=== PATIENT | female | born 1945 | race Caucasian/White ===

== ENCOUNTER 2017-10-30 15:59 | Emergency (ER) | payer MEDICARE, OTHER ==
[~2017-10-30] VITALS: Ht 170.2 cm; Wt 81.2 kg
[2017-10-30 16:03] VITALS: BP 132/60; PULSE 77; RESP 15; TEMP 98.6; O2SAT 97
--- NOTE | 2017-10-30 16:23 | PD ---
HPI Chief Complaint: Fall Time Seen by Provider: 16:12 Travel History International Travel<30 days: No Contact w/Intl Traveler<30days: No Traveled to known affect area: No History of Present Illness HPI 72-year-old female that presents to the ED for evaluation of fall. Patient had a mechanical fall today on a curb. She states that she try to stop her fall with her hands and she landed mostly on her right wrist. She has a chin abrasion as well as a bruise and some swelling to the wrist on the right hand. Patient has difficulty opening her hands secondary to pain. She is able to move it however. She has a superficial cut to the palm as well as to the right fifth digit. States been up-to-date with tetanus. No other medical issues. No loss of consciousness. No numbness, tingling, weakness. Pain per patient is 7 out of 10 on the wrist. No prior injuries to his wrist. Pain is mostly to the dorsal aspect of the wrist on the radial side. PFSH Past Medical History Hx Anticoagulant Therapy: Yes (BABY ASA DAILY) Social History Tobacco Use: No Allergies-Medications (Allergen,Severity, Reaction): Coded Allergies: No Known Allergies (Unverified , 10/30/17) Reported Meds & Prescriptions Reported Meds & Active Scripts Active Diclofenac Sodium DR (Diclofenac Sodium) 75 Mg Tabdr 75 Mg PO BID PRN Tramadol (Tramadol HCl) 50 Mg Tab 50 Mg PO Q6H PRN Reported Aspirin 81 Mg Chew 81 Mg CHEW DAILY Citalopram (Citalopram Hydrobromide) 20 Mg Tab 20 Mg PO DAILY Ditropan (Oxybutynin Chloride) 5 Mg Tab 5 Mg PO Q12HR Review of Systems Except as stated in HPI: all other systems reviewed are Neg Physical Exam Narrative GENERAL: SKIN: Warm and dry. HEAD: Atraumatic. Normocephalic. EYES: Pupils equal and round. No scleral icterus. No injection or drainage. ENT: No nasal bleeding or discharge. Mucous membranes pink and moist. Tongue is midline. No uvula deviation. Patient does have a superficial chin abrasion on the right side. Mild itself appears to be intact with no sign of lacerations or injuries to the gums or teeth as well as to the lips NECK: Trachea midline. No JVD. CARDIOVASCULAR: Regular rate and rhythm. RESPIRATORY: No accessory muscle use. Clear to auscultation. Breath sounds equal bilaterally. GASTROINTESTINAL: Abdomen soft, non-tender, nondistended. Hepatic and splenic margins not palpable. MUSCULOSKELETAL: Extremities without clubbing, cyanosis, or edema. No obvious deformities. Patient has full range of motion of all extremities with exception of the right hand and wrist. Patient has pain on the radial aspect of the wrist and is able to open and close the hand but has pain with extreme tension of the phalanges. Patient does have a superficial cut to the dorsal aspect of the right fifth digit as well as an abrasion to the hypothenear aspect of the right hand. No lumbar, thoracic, cervical spine tenderness to palpation. 2+ pulses bilaterally. Sensation intact bilaterally. NEUROLOGICAL: Awake and alert. No obvious cranial nerve deficits. Motor grossly within normal limits. Five out of 5 muscle strength in the arms and legs. Normal speech. PSYCHIATRIC: Appropriate mood and affect; insight and judgment normal. Data Data Last Documented VS Vital Signs Date Time Temp Pulse Resp B/P (MAP) Pulse Ox O2 Delivery O2 Flow Rate FiO2 10/30/17 16:03 98.6 77 15 132/60 (84) [address] Brain W/O Iv Contrast(Rout) (10/30/17 16:17) Hand, Limited (2vws) (10/30/17 16:17) Wrist, Complete (Cin8ivo) (10/30/17 16:17) Ice/Cold Pack (10/30/17 16:17) Acetamin-Hydrocod 325-5 Mg ([place] 5-325 (10/30/17 16:30) Ed Discharge Order (10/30/17 17:09) Splint Or Brace Apply/Monitor (10/30/17 17:09) [facility] Medical Decision Making Medical Screen Exam Complete: Yes Emergency Medical Condition: Yes Medical Record Reviewed: Yes Interpretation(s) Last Impressions Wrist X-Ray 10/30/171616 Signed Impressions: Service Date/Time: Monday, October 30, 2017 16:35 - CONCLUSION: Negative for fracture or dislocation. Follow up in 7-10 days is suggested if symptoms persist. London Steven MD FACR Head CT 10/30/171616 Signed Impressions: Service Date/Time: Monday, October 30, 2017 16:26 - CONCLUSION: Negative for an acute process. London Steven MD FACR Hand X-Ray 10/30/17 1617 Signed Impressions: Service Date/Time: Monday, October 30, 2017 16:26 - CONCLUSION: Negative for fracture, complete series is suggested. London Steven MD FACR Differential Diagnosis Fracture versus internal injury versus bruise versus contusion versus ICH versus head injury Narrative Course 72-year-old female that presents to the ED for evaluation of fall. Patient was properly examined and was found to have signs and symptoms consistent with fall. Imaging was ordered. Imaging showed no sign of acute bony injury. Patient was reassured. This time was appears to be likely sprain and contusion. At this time I recommend trial of anti-inflammatories and pain medication as needed. Given a brace. Follow with PCP. See ED for worsening symptoms. Ice or warm compresses as needed. Diagnosis Primary Impression: Right wrist sprain Qualified Codes: S63.501A - Unspecified sprain of right wrist, initial encounter Additional Impression: Head contusion Qualified Codes: S00.93XA - Contusion of unspecified part of head, initial encounter Patient Instructions: General Instructions, Narcotic given in the ED Additional Instructions: Take medications as prescribed. Follow-up with PCP. See ED for any worsening symptoms. Do not drink or drive while taking pain medication. Apply ice or heat as needed for pain Med/Other Pt SpecificInfo: Prescription(s) given Scripts Diclofenac Sodium DR (Diclofenac Sodium DR) 75 Mg Tabdr 75 MG PO BID Y for PAIN SCALE 1 TO 10, #20 TAB 0 Refills Prov: Yinka Olvera MD 10/30/17 Tramadol (Tramadol) 50 Mg Tab 50 MG PO Q6H Y for PAIN, #12 TAB 0 Refills Prov: Yinka Olvera MD 10/30/17 Disposition: 01 DISCHARGE HOME Condition: Stable Dionte Nguyen Oct 30, 2017 16:23
[2017-10-30] MEDS ORDERED: ACETAMINOPHEN/HYDROcodone 325 MG/5 MG TAB PO ONE (16:30)
[2017-10-30] MEDS ORDERED: ASPI-516 CHEW (16:31)
[2017-10-30] MEDS ORDERED: OXYB5TAB8 PO (16:31)
[2017-10-30] MEDS ORDERED: CITA20TA4 PO (16:31)
--- NOTE | 2017-10-30 16:42 | RADRPT ---
EXAM DATE/TIME: 10/30/2017 16:26 [facility] COMPARISON: No previous studies available for comparison. INDICATIONS : Tripped on curb hitting chin. RADIATION DOSE: 60.92 CTDIvol (mGy) MEDICAL HISTORY : None SURGICAL HISTORY : None. ENCOUNTER: Initial ACUITY: 1 day PAIN SCALE: 0/10 LOCATION: cranial TECHNIQUE: Multiple contiguous axial images were obtained of the head. Using automated exposure control and adj ustment of the mA and/or kV according to patient size, radiation dose was kept as low as reasonably a chievable to obtain optimal diagnostic quality images. DICOM format image data is available electro nically for review and comparison. FINDINGS: CEREBRUM: The ventricles are normal for age. No evidence of midline shift, mass lesion, hemorrhage or acute in farction. No extra-axial fluid collections are seen. POSTERIOR FOSSA: The cerebellum and brainstem are intact. The 4th ventricle is midline. The cerebellopontine angle i s unremarkable. EXTRACRANIAL: The visualized portion of the orbits is intact. SKULL: The calvaria is intact. No evidence of skull fracture. Minimal mucoperiosteal thickening left maxil naye sinus CONCLUSION: Negative for an acute process. London Steven MD FACR on October 30, 2017 at 16:41 Board Certified Radiologist. This report was verified electronically.
--- NOTE | 2017-10-30 16:56 | RADRPT ---
EXAM DATE/TIME: 10/30/2017 16:26 [facility] COMPARISON: No previous studies available for comparison. INDICATIONS : Fell, right hand and wrist pain, base of thumb area most painful MEDICAL HISTORY : None. SURGICAL HISTORY : None. ENCOUNTER: Initial ACUITY: 1 day PAIN SCORE: 10/10 FINDINGS: Two view examination of the right hand demonstrates no soft tissue swelling, dislocation, or fracture . The joint spaces are maintained. Bony mineralization is normal. CONCLUSION: Negative for fracture, complete series is suggested. London Steven MD FACR on October 30, 2017 at 16:54 Board Certified Radiologist. This report was verified electronically.
--- NOTE | 2017-10-30 16:57 | RADRPT ---
EXAM DATE/TIME: 10/30/2017 16:35 [facility] COMPARISON: No previous studies available for comparison. INDICATIONS : Fell, right wrist and hand pain, base of thumb area worst MEDICAL HISTORY : None. SURGICAL HISTORY : None. ENCOUNTER: Initial ACUITY: 1 day PAIN SCORE: 10/10 LOCATION: Right wrist FINDINGS: Three view examination of the right wrist demonstrates no soft tissue swelling, dislocation, or fract ure. The carpal bones are in normal alignment. The joint spaces are maintained. Bony mineralizatio n is normal. CONCLUSION: Negative for fracture or dislocation. Follow up in 7-10 days is suggested if symptoms persist. London Steven MD FACR on October 30, 2017 at 16:56 Board Certified Radiologist. This report was verified electronically.
[2017-10-30] MEDS ORDERED: DICL75TA PO (17:09)
[2017-10-30] MEDS ORDERED: TRAM50TA PO (17:09)
== END 2017-10-30 17:47 | disposition home or self-care (01) ==
LOC: PHEFT 15:59
DX: S63.501A Unspecified sprain of right wrist, initial encounter (principal); S00.93XA Contusion of unspecified part of head, initial encounter; W19.XXXA Unspecified fall, initial encounter
CPT/HCPCS: 70450; 73110; 73120; 99284; L3908